=== PATIENT | male | born 1955 | race American Indian/Alaskan Native ===

== ENCOUNTER 2018-10-05 16:11 | Emergency (ER) | payer OTHER ==
[2018-10-05] MEDS ORDERED: Iohexol 240 (50 ml) ONE (17:08)
[2018-10-05] MEDS ORDERED: Sodium Chloride 0.9% 1,000 ML ONE ×2 (17:08)
[2018-10-05 17:10] LABS: BASO % 0.4 % (0.0-2.0); LYMPH % 9.7 % (20.0-40.0); MEAN CELL VOLUME 92.1 fL (80.0-94.0); MEAN CORPUSCULAR HEMOGLOBIN 30.8 pg (27.0-31.0); MEAN CORPUSCULAR HGB CONC 33.5 g/dL (33.0-37.0); MONO # 0.7 K/uL (0.0-0.8); MONO % 6.6 % (0.0-10.0); NEUT # 8.8 K/uL (1.8-7.0); NEUT % 83.3 % (50.0-75.0); NRBC % 0.1 % (0.0-2.0); PLATELET COUNT 196 K/uL (130-400); RBC 4.86 Mil/uL (4.40-5.90); RED CELL DISTRIBUTION WIDTH 14.6 % (11.5-14.5); WHITE BLOOD COUNT 10.6 K/uL (4.8-10.8)
[2018-10-05] MEDS: Iohexol 240 (50 ml) PO STA (17:11)
[2018-10-05] MEDS: Sodium Chloride 0.9% 1,000 ML IV ONE (17:12)
--- NOTE | 2018-10-05 17:14 | C.PDOC ---
History Of Present Illness 63 years old male presents to ED for complaints of cough, congestion, RLQ abdominal pain, and mild vomiting that began yesterday. Denies bowel changes or urinary changes. Patient reports appetite is mildly decreased and felt feverish. Patient states he saw Dr. Stephy Cerna and he was referred to ER for evaluation of RLQ abdominal pain and cough. Time Seen by Provider: 10/05/18 16:42 Chief Complaint (Nursing): Abdominal Pain History Per: Patient History/Exam Limitations: no limitations Onset/Duration Of Symptoms: Hrs Current Symptoms Are (Timing): Still Present Location Of Pain/Discomfort: RLQ Radiation Of Pain To:: None Associated Symptoms: Vomiting Exacerbating Factors: None Alleviating Factors: None Last Bowel Movement: Today Recent travel outside of the [place]: No Past Medical History Reviewed: Historical Data, Nursing Documentation, Vital Signs Vital Signs: Last Vital Signs Temp 98.7 F 10/05/18 16:19 Pulse 77 10/05/18 16:19 Resp 18 10/05/18 16:19 BP 139/79 10/05/18 16:19 Pulse Ox 97 10/05/18 16:19 - Medical History PMH: No Chronic Diseases Denies: Chronic Kidney Disease Surgical History: Cholecystectomy Family History: States: No Known Family Hx - Social History Hx Tobacco Use: No Hx Alcohol Use: No Hx Substance Use: No - Immunization History Hx Tetanus Toxoid Vaccination: No Hx Influenza Vaccination: No Hx Pneumococcal Vaccination: Yes Review Of Systems Constitutional: Positive for: Fever. Negative for: Chills Respiratory: Positive for: Cough, Other (congestion ) Gastrointestinal: Positive for: Vomiting, Abdominal Pain (RLQ) Skin: Negative for: Rash Neurological: Negative for: Weakness, Numbness Physical Exam - Physical Exam Appears: Non-toxic, No Acute Distress Skin: Normal Color, Warm, Dry, No Rash Head: Atraumatic, Normacephalic Eye(s): bilateral: Normal Inspection, PERRL, EOMI Oral Mucosa: Moist Neck: Normal ROM, Supple Chest: Symmetrical, No Tenderness Cardiovascular: Rhythm Regular, No Murmur Respiratory: Normal Breath Sounds, No Rales, No Rhonchi, No Wheezing Gastrointestinal/Abdominal: Soft, Tenderness (Normal localized ), Guarding (RLQ ), No Rebound Extremity: Normal ROM Extremity: Bilateral: Atraumatic, Normal Color And Temperature, Normal ROM Neurological/Psych: Oriented x3, Normal Speech Gait: Steady ED Course And Treatment - Laboratory Results Result Diagrams: 10/05/18 17:07 10/05/18 17:07 Lab Interpretation: No Acute Changes O2 Sat by Pulse Oximetry: 97 (RA) Pulse Ox Interpretation: Normal - Other Rad CXR X-Ray: Viewed By Me, Read By Radiologist Interpretation: Date of service: 10/05/2018. HISTORY: cough. COMPARISON: 04/15/2015. TECHNIQUE: Chest PA and lateral. FINDINGS: LUNGS: No active pulmonary disease. PLEURA: No significant pleural effusion identified. No pneumothorax apparent. CARDIOVASCULAR: No aortic atherosclerotic calcification present. Normal cardiac size. No pulmonary vascular congestion. OSSEOUS STRUCTURES: No significant abnormalities. VISUALIZED UPPER ABDOMEN: Normal. OTHER FINDINGS: None. IMPRESSION: No active disease. No significant interval change compared to the prior examination(s). - CT Scan/US CT abdomen and pelvis Other Rad Studies (CT/US): Read By Radiologist, Radiology Report Reviewed CT/US Interpretation: Accession No. : [id number]. Patient Name / ID : VICENTE ZENG / [id number]. Exam Date : 10/05/2018 18:39:19 ( Approved ). Study Comment : Sex / Age : M / 63Y. Creator : Refugio Cardenas. Dictator : Alexandra Erwin MD. Provider Network Mgr : Special Service Representative : Alexandra Erwin MD. Approver2 : Report Date : 10/05/2018 18:46:39. My Comment : . PROCEDURE: CT Abdomen and Pelvis with oral and IV contrast. HISTORY: abd pain. COMPARISON: None available. TECHNIQUE: Contiguous axial images of the abdomen and pelvis. Oral and IV contrast was administered. Coronal and Sagittal reformats generated and reviewed. Contrast dose: 100 cc Visipaque 320 IV. Radiation dose: Total exam DLP = 995.97 mGy-cm. This CT exam was performed using one or more of the following dose reduction techniques: Automated exposure control, adjustment of the mA and/or kV according to patient size, and/or use of iterative reconstruction technique. FINDINGS: LOWER THORAX: No visible consolidation, pleural effusion, or pneumothorax. Small hiatal hernia/distal esophageal wall thickening. LIVER: 4 mm and 9 mm hepatic hypodensities, too small to characterize. GALLBLADDER AND BILE DUCTS: Cholecystectomy. PANCREAS: Unremarkable. SPLEEN: Unremarkable. ADRENALS: Unremarkable. KIDNEYS AND URETERS: The kidneys enhance symmetrically. No hydronephrosis or obstructing renal calculus. BLADDER: The urinary bladder appears unremarkable. REPRODUCTIVE: Heterogeneous enlarged prostate gland measures approximately 5.0 x 5.3 cm. APPENDIX: The appendix appears within normal limits of caliber. No secondary signs of acute appendicitis. BOWEL: The stomach is nondistended. The bowel loops appear within normal limits of caliber without evidence of intestinal obstruction. Moderate diffuse constipation. Diverticulosis without CT evidence of acute diverticulitis. PERITONEUM: No significant free fluid. No definite free air. LYMPH NODES: No bulky lymphadenopathy identified. VASCULATURE: No aortic aneurysm. No atherosclerotic calcification or mural plaque present. BONES: Degenerative changes of the spine. OTHER FINDINGS: None. IMPRESSION: Diverticulosis without CT evidence of acute diverticulitis. Moderate constipation. Enlarged heterogeneous prostate gland. Recommend correlation with PSA. 4 mm and 9 mm hepatic hypodensities, too small to characterize. Statistically likely cysts or hemangiomas. Additional findings as above. Reevaluation Time: 19:24 Reassessment Condition: Improved - Physician Consult Information Time Consulting Physician Contacted: 19:25 Physician Contacted: Stephy Cerna Outcome Of Conversation: She states that the hematuria with enlarged prostate is chronic and he is known to have an elevated PSA. He has been referred to a urologist. She requests that patient be started on a Z-praveen for bronchitis and will follwo up in the office. Medical Decision Making Medical Decision Making: Plan: * IV Fluids * Blood work * CXR * Urinalysis * CT Abd/Pelvis Disposition Counseled Patient/Family Regarding: Studies Performed, Diagnosis, Need For Followup - Disposition Referrals: Stephy Cerna MD [Staff Provider] - Disposition: HOME/ ROUTINE Disposition Time: 19:25 Condition: STABLE Prescriptions: Azithromycin [Zithromax] 250 mg PO DAILY #6 tab Instructions: Constipation, Adult (DC), Acute Abdomen (Belly Pain), Acute Bronchitis, Adult (DC) Forms: [facility] ([place]) - Clinical Impression Clinical Impression: Constipation, Abdominal pain, Bronchitis - Scribe Statement The provider has reviewed the documentation as recorded by the [employer] Roberto All medical record entries made by the [employer] were at my direction and personally dictated by me. I have reviewed the chart and agree that the record accurately reflects my personal performance of the history, physical exam, medical decision making, and the department course for this patient. I have also personally directed, reviewed, and agree with the discharge instructions and disposition.
[2018-10-05 17:24] LABS: ALB/GLOB RATIO 1.4 (1.0-2.1); ALBUMIN 4.9 g/dL (3.5-5.0); ALT/SGPT 24 U/L (21-72); AST/SGOT 30 U/L (17-59); BLOOD UREA NITROGEN 11 mg/dL (9-20); CALCIUM 9.3 mg/dl (8.6-10.4); GFR NON-AFRICAN AMERICAN > 60; LIPASE 104 U/L (23-300)
[2018-10-05 17:29] LABS: SQUAMOUS EPITHIAL < 1 /hpf (0-5); URINE BILIRUBIN NEGATIVE (NEGATIVE); URINE BLOOD 2+ (NEGATIVE); URINE CLARITY Clear (Clear); URINE COLOR Yellow (YELLOW); URINE GLUCOSE (UA) NORMAL (Normal); URINE LEUKOCYTE ESTERASE NEG Leu/uL (Negative); URINE PROTEIN NEGATIVE (NEGATIVE); URINE UROBILINOGEN NORMAL mg/dL (0.2-1.0)
[2018-10-05] MEDS ORDERED: Iodixanol 320 mg/ml 150 ml Bottle IV ONE (18:11)
--- NOTE | 2018-10-05 18:22 | RAD ---
Date of service: 10/05/2018 HISTORY: cough COMPARISON: 04/15/2015 TECHNIQUE: Chest PA and lateral FINDINGS: LUNGS: No active pulmonary disease. PLEURA: No significant pleural effusion identified. No pneumothorax apparent. CARDIOVASCULAR: No aortic atherosclerotic calcification present. Normal cardiac size. No pulmonary vascular congestion. OSSEOUS STRUCTURES: No significant abnormalities. VISUALIZED UPPER ABDOMEN: Normal. OTHER FINDINGS: None. IMPRESSION: No active disease. No significant interval change compared to the prior examination(s).
--- NOTE | 2018-10-05 19:01 | CT ---
PROCEDURE: CT Abdomen and Pelvis with oral and IV contrast. HISTORY: abd pain COMPARISON: None available. TECHNIQUE: Contiguous axial images of the abdomen and pelvis. Oral and IV contrast was administered. Coronal and Sagittal reformats generated and reviewed. Contrast dose: 100 cc Visipaque 320 IV Radiation dose: Total exam DLP = 995.97 mGy-cm. This CT exam was performed using one or more of the following dose reduction techniques: Automated exposure control, adjustment of the mA and/or kV according to patient size, and/or use of iterative reconstruction technique. FINDINGS: LOWER THORAX: No visible consolidation, pleural effusion, or pneumothorax. Small hiatal hernia/distal esophageal wall thickening. LIVER: 4 mm and 9 mm hepatic hypodensities, too small to characterize. GALLBLADDER AND BILE DUCTS: Cholecystectomy. PANCREAS: Unremarkable. SPLEEN: Unremarkable. ADRENALS: Unremarkable. KIDNEYS AND URETERS: The kidneys enhance symmetrically. No hydronephrosis or obstructing renal calculus. BLADDER: The urinary bladder appears unremarkable. REPRODUCTIVE: Heterogeneous enlarged prostate gland measures approximately 5.0 x 5.3 cm. APPENDIX: The appendix appears within normal limits of caliber. No secondary signs of acute appendicitis. BOWEL: The stomach is nondistended. The bowel loops appear within normal limits of caliber without evidence of intestinal obstruction. Moderate diffuse constipation. Diverticulosis without CT evidence of acute diverticulitis. PERITONEUM: No significant free fluid. No definite free air. LYMPH NODES: No bulky lymphadenopathy identified. VASCULATURE: No aortic aneurysm. No atherosclerotic calcification or mural plaque present. BONES: Degenerative changes of the spine. OTHER FINDINGS: None. IMPRESSION: Diverticulosis without CT evidence of acute diverticulitis. Moderate constipation. Enlarged heterogeneous prostate gland. Recommend correlation with PSA. 4 mm and 9 mm hepatic hypodensities, too small to characterize. Statistically likely cysts or hemangiomas. Additional findings as above.
[2018-10-05 19:23] LABS: LYMPHOCYTE 6 % (20-40); MONOCYTE 8 % (0-10); NEUTROPHIL 80 % (50-75); PLATELET ESTIMATE NORMAL (NORMAL); REACTIVE LYMPHOCYTES 6 % (0-0); TOTAL CELLS COUNTED 100
[2018-10-05 19:45] VITALS: BP 144/78; PULSE 107; RESP 14; TEMP 99; O2SAT 99
== END 2018-10-05 19:45 | disposition home or self-care (01) ==
LOC: C.ER 16:11
DX: J40 Bronchitis, not specified as acute or chronic (principal); K59.00 Constipation, unspecified; R10.31 Right lower quadrant pain
CPT/HCPCS: 71046; 74177; 80053; 81001; 83690; 85025; 96360; 99285; J7030; Q9966; Q9967